=== PATIENT | male | born 1950 | race Two or more races ===

== ENCOUNTER 2024-07-08 06:42 | Day surgery (SDC) | payer OTHER, SELFPAY ==
[2024-07-08 08:15] VITALS: BMI 30.4
[2024-07-08 08:21] LABS: Glucose - Point of Care 112 mg/dl (70-99)
[2024-07-08 08:25] VITALS: BP 123/75
[2024-07-08 08:27] VITALS: BMI 30.4
[2024-07-08 11:36] VITALS: BP 116/66
[2024-07-08 11:51] VITALS: BP 99/79
[2024-07-08 12:00] VITALS: BP 132/85
== END 2024-07-08 12:29 | disposition home or self-care (01) ==
LOC: SDS 06:42
PROVIDERS: ATTENDING PHYSICIAN Internal Medicine Gastroenterology
DX: D12.2 Benign neoplasm of ascending colon (principal); K64.0 First degree hemorrhoids
CPT/HCPCS: 45390; 88305; 82962

== ENCOUNTER 2024-12-07 06:20 | Day surgery (SDC) | payer OTHER, SELFPAY ==
[2024-12-07 09:35] VITALS: BMI 30.4
[2024-12-07 09:36] VITALS: BMI 30.4
[2024-12-07 09:38] VITALS: BP 116/71
[2024-12-07 09:44] LABS: Glucose - Point of Care 111 mg/dl (70-99)
[2024-12-07 12:00] VITALS: BP 117/48
[2024-12-07 12:10] LABS: Glucose - Point of Care 108 mg/dl (70-99)
[2024-12-07 12:15] VITALS: BP 115/72
[2024-12-07 12:30] VITALS: BP 117/75
== END 2024-12-07 12:35 | disposition home or self-care (01) ==
LOC: SDS 06:20
PROVIDERS: ATTENDING PHYSICIAN Internal Medicine Gastroenterology
DX: Z12.11 Encounter for screening for malignant neoplasm of colon (principal); D12.2 Benign neoplasm of ascending colon; K57.30 Diverticulosis of large intestine without perforation or abscess without bleeding; K64.0 First degree hemorrhoids; Z86.0101 Personal history of adenomatous and serrated colon polyps; Z98.0 Intestinal bypass and anastomosis status; Z98.890 Other specified postprocedural states
CPT/HCPCS: 45385; 88305; 82962